=== PATIENT | male | born 1995 | race American Indian/Alaskan Native ===

== ENCOUNTER 2018-12-12 22:59 | Emergency (ER) | payer SELFPAY ==
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
[2018-12-13] MEDS ORDERED: PERCOCET 5/325 PO STA (03:42)
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
[2018-12-13 05:00] VITALS: BP 119/67
== END 2018-12-13 05:00 | disposition home or self-care (01) ==
LOC: ED 22:59
DX: M79.604 Pain in right leg (principal); Z79.899 Other long term (current) drug therapy; V89.2XXA Person injured in unspecified motor-vehicle accident, traffic, initial encounter; Y93.89 Activity, other specified; Y92.488 Other paved roadways as the place of occurrence of the external cause; Y99.8 Other external cause status
CPT/HCPCS: 99284